=== PATIENT | male | born 1975 | race Caucasian/White ===

== ENCOUNTER → 2019-12-30 | Emergency (ER) | payer OTHER ==
[~2019-12-30] VITALS: Ht 185.4 cm; Wt 135.2 kg
[~2019-12-30] MED LIST: ATACAND HCT 321 EAC1; LOSARTAN-HCTZ1 EAC2
== END | disposition home or self-care (01) ==
LOC: ER 17:39
DX: R20.0 Anesthesia of skin (principal); R53.81 Other malaise